=== PATIENT | male | born 1995 | race Caucasian/White ===

== ENCOUNTER 2018-11-22 20:52 | Emergency (ER) | payer BC ==
[~2018-11-22] VITALS: Ht 177.8 cm; Wt 90.9 kg
[2018-11-22 20:55] VITALS: BP 159/88; TEMP 98.3
[2018-11-22 21:30] LABS: BASO % 0.6 % (0.0-2.0); EOS # 0.1 (0.0-0.7); EOS % 1.9 % (0-4.0); GRAN # 4.9 (1.4-6.5); HEMATOCRIT 41.1 % (42.0-52.0); HEMOGLOBIN 14.5 g/dl (13.5-18.0); LYMPH # 1.5 (1.2-3.4); LYMPH % 21.2 % (20.0-51.0); MEAN CELL VOLUME 85 fl (80.0-100.0); MEAN CORPUSCULAR HEMOGLOBIN 30 pg (27.0-31.0); MEAN CORPUSCULAR HGB CONC 35 g/dl (33.0-37.0); MONO # 0.6 (0.1-0.6); MONO % 7.9 % (1.7-9.3); PLATELET COUNT 273 K/mm3 (130-400); RED BLOOD COUNT 4.86 M/mm3 (4.20-5.60); REDCELL DISTRIBUTION WIDTH-CV 11.8 % (11.5-14.5)
[2018-11-22 21:42] LABS: ALANINE AMINOTRANSFERASE 51 U/L (21-72); ALBUMIN 4.3 gm/dL (3.5-5.0); ALKALINE PHOSPHATASE 72 U/L (50-136); ANION GAP 6 mmol/L (7-16); AST,SGOT 38 U/L (15-37); BILIRUBIN,TOTAL 0.3 mg/dL (0.0-1.0); BLOOD UREA NITROGEN 20 mg/dL (9-20); CALCIUM 9.5 mg/dL (8.4-10.2); CARBON DIOXIDE 30 mmol/L (22-30); CHLORIDE 102 mmol/L (98-107); CREATININE, serum 1.24 mg/dL (0.66-1.25); GLUCOSE 111 mg/dL (74-106); LIPASE 53 U/L (23-300); POTASSIUM 4.1 mmol/L (3.4-5.0); SODIUM 138 mmol/L (137-145); TOTAL PROTEIN 6.9 gm/dL (6.4-8.2)
[2018-11-22 21:45] LABS: C-REACTIVE PROTEIN < 0.5 mg/dL (0.0-0.9)
[2018-11-22 21:51] LABS: TROPONIN-I < 0.012 ng/mL (0.000-0.035)
[2018-11-22 23:05] VITALS: PULSE 95
== END 2018-11-22 23:05 | disposition home or self-care (01) ==
LOC: COL.ER 20:52
PROVIDERS: Emergency Medicine
DX: F41.9 Anxiety disorder, unspecified (principal); J45.909 Unspecified asthma, uncomplicated; F17.290 Nicotine dependence, other tobacco product, uncomplicated